=== PATIENT | male | born 1955 | race African-American/Black ===

== ENCOUNTER 2016-08-20 23:45 | Emergency (ER) | payer BC ==
[2016-08-21] MEDS ORDERED: HYDROcodone/Acetaminophen 5/325 mg Tablet ONE (00:03)
[2016-08-21] MEDS ORDERED: Ketorolac Tromethamine 60 MG/2 ML VIAL ONE (00:07)
--- NOTE | 2016-08-21 08:08 | RAD ---
PA CHEST RADIOGRAPH 2 VIEWS RIGHT RIBS: DATE: 08/21/16. PROVIDED CLINICAL HISTORY: Contusion. FINDINGS: Cardiac and mediastinal silhouette is within normal limits. No focal consolidation, pleural fluid, or pneumothorax apparent. No evidence for a displaced right-sided rib fracture. IMPRESSION: 1. No evidence for an acute cardiopulmonary process. 2. No evidence for a displaced right-sided rib fracture. POS: [facility]
== END 2016-08-21 00:41 | disposition home or self-care (01) ==
LOC: MADERS 23:45
DX: S20.211A Contusion of right front wall of thorax, initial encounter (principal); F17.220 Nicotine dependence, chewing tobacco, uncomplicated; W51.XXXA Accidental striking against or bumped into by another person, initial encounter
CPT/HCPCS: 96372; J1885

== ENCOUNTER 2016-08-26 18:29 | Emergency (ER) | payer BC, SELFPAY ==
[~2016-08-26 18:29] MED LIST: Sodium Chloride 0.9% 1,000 ML BAG ONE
[2016-08-26] MEDS ORDERED: Ondansetron HCl/PF 4 MG/2 ML Vial ONE (19:42)
[2016-08-26] MEDS ORDERED: Ketorolac Tromethamine 30 MG/ML VIAL ONE (19:42)
--- NOTE | 2016-08-26 20:23 | RAD ---
THREE VIEWS LEFT SHOULDER 08/26/16 HISTORY: Fall. Left shoulder pain. AP internally, externally and scapular Y-views left shoulder is obtained. Images demonstrate a left sided pneumothorax. Fractures seen involving the left 6th and 7th ribs. No other left shoulder abnormality seen. IMPRESSION: 1. Left sided pneumothorax. 2. Left 6th and 7th rib fractures. POS: [facility]
--- NOTE | 2016-08-26 20:23 | RAD ---
AP VIEW CHEST WELL OBLIQUE AND CONE DOWN VIEWS LEFT RIBS 08/26/16 Frontal view of the chest is obtained. There is a moderate sized approximately 20% left sided pneumo thorax. Radiographs of the ribs demonstrate mildly to moderately displaced left 6th and 7th rib fractures. N o other definite rib fractures seen. IMPRESSION: 20% left sided pneumothorax and fractured left 6th and 7th ribs. These were not present on patient's previous radiograph of the chest from 08/21/16. Code T POS: [facility]
--- NOTE | 2016-08-26 20:26 | RAD ---
HISTORY: Fall. Neck pain. TWO VIEWS CERVICAL SPINE: 08/26/16 AP and lateral views cervical spine obtained. There is disc space height loss with anterior and posterior osteophytes at the C6-7 level. This is c ompatible with changes of spondylosis. No evidence of acute fracture seen. IMPRESSION: C6-7 changes of spondylosis. No other acute abnormality seen. Open mouth odontoid view was not obtai song on this cervical spine series. POS: [facility]
--- NOTE | 2016-08-26 20:27 | RAD ---
TWO VIEWS THORACIC SPINE 08/26/16 HISTORY: Patient refused swimmer's view due to pain. AP and lateral views thoracic spine obtained. Again left sided pneumothorax seen. Left 6th and 7th r ib fractures seen. the thoracic spine is unremarkable. No evidence of thoracic spine lesion seen. IMPRESSION: Left 6th and 7th rib fractures. POS: [facility]
--- NOTE | 2016-08-26 20:46 | RAD ---
HISTORY: Fall. TWO VIEWS LUMBAR SPINE: 08/26/16 AP and lateral views lumbar spine obtained. Six nonribbearing lumbar type vertebrae are seen. No evidence of fractures, subluxations or bony les ions seen. IMPRESSION: Normal two views lumbar spine. POS: [facility]
--- NOTE | 2016-08-26 22:12 | RAD ---
AP VIEW CHEST 08/26/16 HISTORY: Patient with pneumothorax. AP view chest is obtained on 08/26/16. A left sided Pneumocath is in place. The left apical pneumothorax may be slightly smaller. It certai nly is not any larger than it was on the previous exam where it was diagnosed on a left shoulder rad iograph. Left rib fractures again seen. IMPRESSION: Placement of a left sided Pneumocath. Left apical pneumothorax is of similar size or possibly slight ly smaller than the previous comparison radiographs obtained earlier today. Right lung is well aerat ed. POS: [facility]
[2016-08-26 22:50] LABS: Bacteria/HPF Rare-Few HPF (None Seen); Bilirubin Negative (Negative); Blood, Urine Trace (Negative); Clarity Clear (Clear); Glucose, Urine (Dipstick) Negative (Negative); Leukocyte Negative (Negative); Nitrite Negative (Negative); Protein, Urine (Dipstick) Negative (Neg-Trace); Renal Epithelial 0-3 HPF (0-3); Specific Gravity, Urine 1.025 (1.005-1.030); Transitional Epithelial 0-3 HPF (0-3); Urobilinogen 0.2 mg/dL (0.2-1.0); WBC/HPF 0-3 HPF (0-3); pH, Urine 5.5 (5.0-9.0)
== END 2016-08-26 22:25 | disposition short-term general hospital (02) ==
LOC: MADERS 18:29
DX: S22.42XA Multiple fractures of ribs, left side, initial encounter for closed fracture (principal); S27.0XXA Traumatic pneumothorax, initial encounter; S40.012A Contusion of left shoulder, initial encounter; F17.220 Nicotine dependence, chewing tobacco, uncomplicated; V86.99XA Unspecified occupant of other special all-terrain or other off-road motor vehicle injured in nontraffic accident, initial encounter
CPT/HCPCS: 32554; 71010; 72040; 72072; 72100; 81001; 87086; 96361; 96374; 96375; J1885; J2270; J2405; J7050